=== PATIENT | female | born 1985 | race African-American/Black ===

== ENCOUNTER 2023-04-08 13:45 | Emergency (ER) | payer OTHER, SELFPAY ==
[2023-04-08 13:50] VITALS: BP 114/77; PULSE 81; RESP 20; TEMP 36.8; O2SAT 100
--- NOTE | 2023-04-08 14:30 | ED.DENTAL ---
HPI - Dental/Oral General Chief complaint: Dental/Oral Stated complaint: tooth pain Source: patient Mode of arrival: ambulatory Limitations: no limitations History of Present Illness HPI Narrative: Patient presents for evaluation of bilateral lower dental pain. Symptom onset 3 days ago. She indicates she has had issues on and off for quite a while. In the past she has been placed on NSAIDs and abx which seem to help. She also gargles with salt water and hydrogen peroxide which she believes helps prevent infections. She rates her pain 6/10 in severity. No fever, chills, nausea, vomiting, trismus or problems handling secretions. She does not smoke. Related Data Allergies Allergy/AdvReac Type Severity Reaction Status Date / Time No Known Allergies Allergy Unknown Unverified 09/17/19 10:00 No Known Allergies Allergy Uncoded 09/17/19 10:00 Review of Systems Review of Systems: CONSTITUTIONAL: Denies fever, chills, or sweats. EYES: Denies visual changes, redness, or discharge. ENT: Reports bilateral lower dental pain. CARDIOVASCULAR: Denies chest pain, palpitations, or edema. RESPIRATORY: Denies cough or dyspnea. GASTROINTESTINAL: Denies abdominal pain, nausea, vomiting, or diarrhea. GENITOURINARY: Denies dysuria or hematuria. SKIN: Denies rash or itching. MUSCULOSKELETAL: Denies back pain, joint pain, or myalgia. NEUROLOGIC: Denies headache, numbness, dizziness, or weakness. PSYCHIATRIC: Denies anxiety or depression. PMFSH Past Medical History Medical History No pertinent past medical history Surgical History Surgical History No pertinent past surgical history Family History Family History (Updated 04/08/23 @ 14:34 by Luis Manuel Brooks, C[employer], ) Mother Family history non-contributory Social History Social History Smoking status: Never smoker Substance use: never Living arrangements: with family Gender identity (if verbalized by the patient): Female Exam Narrative: GENERAL: Well-appearing, well-nourished, and in no acute distress. HEAD: Normocephalic, atraumatic. EYES: PERRLA and EOMI. ENT: Nares clear, no rhinorrhea or epistaxis. Mucous membranes moist. Oropharynx without tonsillar hypertrophy exudate or other lesions. Bilateral lower wisdom teeth are impacted. There is no visible or palpable abscess. Bilateral TMs pearly lock nonbulging NECK: Supple. No adenopathy or masses. No carotid bruits or JVD CHEST: Clear to auscultation. No respiratory distress. No wheezes rales or rhonchi HEART: Regular rate and rhythm. No murmur heard. Normal peripheral pulses. ABDOMEN: Soft, nontender, nondistended, normal active bowel sounds. EXTREMITIES: Normal range of motion. No edema. SKIN: Warm, dry, no rash. NEURO: No focal deficits. Alert and oriented x3. PSYCH: Normal mood and affect. Course Course Emergency Course: This is a 38-year-old female who presented for evaluation of bilateral lower dental pain. In the past she has responded to NSAIDs and antibiotics. Will discharge with ibuprofen and amoxicillin. She requested a prescription for Diflucan so that was symptoms well. Follow-up with dentist this coming week. Go to the ER for worsening symptoms. Patient in agreement with plan of care. Level of Care: Express Care Visit Vital Signs Vital signs: Vital Signs Temperature 36.8 C 04/08/23 13:50 Pulse Rate 81 04/08/23 13:50 Respiratory Rate 04/08/23 13:50 Blood Pressure 114/77 04/08/23 13:50 Pulse Oximetry 100 04/08/23 13:50 Oxygen Delivery Room Air 04/08/23 13:50 Temperature 36.8 C 04/08/23 13:50 Pulse Rate 81 04/08/23 13:50 Respiratory Rate 20 04/08/23 13:50 Blood Pressure 114/77 04/08/23 13:50 Pulse Oximetry 100 04/08/23 13:50 Oxygen Delivery Room Air
== END 2023-04-08 14:33 | disposition home or self-care (01) ==
PROVIDERS: Emergency Provider Nurse Practitioner
DX: K01.1 Impacted teeth (principal)
CPT/HCPCS: 99203; G0463

== ENCOUNTER 2024-02-11 12:48 | Emergency (ER) | payer OTHER, SELFPAY ==
[2024-02-11 13:10] VITALS: BP 127/76; PULSE 68; RESP 18; TEMP 36.7; O2SAT 99
--- NOTE | 2024-02-11 13:27 | ED.URI ---
HPI - URI/Sore Throat General Chief Complaint: Upper Respiratory Infection Stated Complaint: Sore Throat/Congestion History of Present Illness HPI Narrative: 38-year-old female presented for complaint of sore throat, nasal congestion and postnasal drainage since yesterday. She endorses her nose feels irritated. She denies shortness of breath, wheezing, nausea vomiting, fevers or chills. She is taking NyQuil for symptoms. Endorses children have similar symptoms. Related Data Home Medications Medication Instructions Recorded Confirmed No Home Medications 02/11/24 02/11/24 Allergies Allergy/AdvReac Type Severity Reaction Status Date / Time No Known Allergies Allergy Unknown Unverified 02/11/24 13:02 Review of Systems Review of Systems: CONSTITUTIONAL: Denies body aches, fever, chills, or sweats. EYES: Denies visual changes, redness, or discharge. ENT: Reports sore throat, rhinorrhea, denies otalgia. CARDIOVASCULAR: Denies chest pain, palpitations, or edema. RESPIRATORY: Denies dyspnea. GASTROINTESTINAL: Denies abdominal pain, nausea, vomiting, or diarrhea. SKIN: Denies rash, itching, or wounds. MUSCULOSKELETAL: Denies back pain, joint pain, or myalgia. NEUROLOGIC: Denies headache PMFSH Past Medical History Medical History No pertinent past medical history Surgical History Surgical History No pertinent past surgical history Family History Family History Mother Family history non-contributory Social History Social History Smoking status: Never smoker Substance use: never Living arrangements: with family Gender identity (if verbalized by the patient): Female Exam Narrative: GENERAL: well-appearing EYES: conjunctivae clear ENT: Mucous membranes moist. TM pearly lock with normal light reflex bilaterally; no tragal tenderness. Oropharynx not erythematous without lesions. Tonsils not enlarged and without exudate. No drooling, no hoarseness, no trismus, uvula midline. No tripod positioning, hot potato voice, or soft palate swelling. NECK: Supple. No lymphadenopathy CHEST: Clear to auscultation, breath sounds equal. No respiratory distress, speaks in full sentences. HEART: Regular rate and rhythm. No murmur heard. SKIN: Warm, dry, no rash. NEURO: Alert and oriented x3. Course Course Emergency Course: Patient is aware of diagnosis, understands and agrees to treatment plan. Anticipatory guidance given. Patient agrees to follow-up as directed and is aware of reasons to seek care at the emergency department. Portions of this record may have been created with voice recognition software Level of Care: Express Care Visit Vital Signs Vital signs: Vital Signs Temperature 98.0 F 02/11/24 13:10 Pulse Rate 68 02/11/24 13:10 Respiratory Rate 18 02/11/24 13:10 Blood Pressure 127/76 02/11/24 13:10 Pulse Oximetry 99 02/11/24 13:10 Oxygen Delivery Room Air 02/11/24 13:10 Temperature 98.0 F 02/11/24 13:10 Pulse Rate 68 02/11/24 13:10 Respiratory Rate 18 02/11/24 13:10 Blood Pressure 127/76 02/11/24 13:10 Pulse Oximetry 99 02/11/24 13:10 Oxygen Delivery Room Air 02/11/24 13:10 MDM - URI/Sore Throat MDM Narrative Medical decision making narrative: negative flu, COVID, strep. Results reviewed with patient. Discussed physical exam findings. Advised supportive measures and signs/symptoms to go to the ER. Pt is appropriate for outpt treatment and f/u. Differential Diagnosis Differential diagnosis: Likely upper respiratory infection, otitis media, sinusitis, viral infection, bronchitis and pharyngitis Lab Data Labs: Influenza A Screen Negative Reference Ran
== END 2024-02-11 14:05 | disposition home or self-care (01) ==
PROVIDERS: Emergency Provider Nurse Practitioner Family
DX: J06.9 Acute upper respiratory infection, unspecified (principal); Z20.822 Contact with and (suspected) exposure to COVID-19
CPT/HCPCS: 87081; 87426; 87804; 87880; 99213; G0463